=== PATIENT | male | born 1990 | race Caucasian/White ===

== ENCOUNTER → 2019-04-27 | Outpatient (REF) | payer BC ==
[~2019-04-27] MED LIST: /AUGM875TA; CELE1CAP4; VICO5TAB
== END ==
LOC: M SMT 12:49
PROVIDERS: ATTEND Urology
DX: Z30.2 Encounter for sterilization (principal)

== ENCOUNTER → 2019-09-29 | Outpatient (REF) | payer BC ==
[2019-09-29 12:37] LABS: INFLUENZA A AMPLIFICATION POSITIVE (NEGATIVE); INFLUENZA B AMPLIFICATION NEGATIVE (NEGATIVE)
== END ==
LOC: M LAB REF 11:51
PROVIDERS: ATTEND Physician Assistant
DX: J11.1 Influenza due to unidentified influenza virus with other respiratory manifestations (principal)

== ENCOUNTER → 2021-04-29 | Outpatient (REF) | LOC: M LABSMTC 10:41 | PROVIDERS: ATTEND Pediatrics | DX: Z11.52 Encounter for screening for COVID-19 (principal) ==

== ENCOUNTER → 2021-05-07 | Outpatient (REF) | LOC: M EMP 09:45 | PROVIDERS: ATTEND Family Medicine | DX: Z11.52 Encounter for screening for COVID-19 (principal) ==

== ENCOUNTER → 2021-05-11 | Outpatient (REF) | LOC: M LABSMTC 09:55 | PROVIDERS: ATTEND Pediatrics | DX: Z11.52 Encounter for screening for COVID-19 (principal) ==

== ENCOUNTER → 2021-05-16 | Outpatient (REF) | LOC: M LABSMTC 10:32 | PROVIDERS: ATTEND Pediatrics | DX: Z11.52 Encounter for screening for COVID-19 (principal) ==

== ENCOUNTER → 2021-05-21 | Outpatient (REF) | LOC: M EMP 09:39 | PROVIDERS: ATTEND Family Medicine | DX: Z11.52 Encounter for screening for COVID-19 (principal) ==

== ENCOUNTER → 2021-07-03 | Outpatient (REF) | LOC: M LABSMTC 11:52 | PROVIDERS: ATTEND Family Medicine | DX: Z11.52 Encounter for screening for COVID-19 (principal) ==

== ENCOUNTER → 2021-08-16 | Outpatient (REF) | LOC: M LABSMTC 12:17 | PROVIDERS: ATTEND Pediatrics | DX: Z11.52 Encounter for screening for COVID-19 (principal) ==

== ENCOUNTER → 2022-03-17 | Outpatient (REF) | LOC: M LABSMTC 10:53 | PROVIDERS: ATTEND Family Medicine | DX: Z11.52 Encounter for screening for COVID-19 (principal) ==

== ENCOUNTER → 2022-03-26 | Outpatient (REF) | LOC: M EMP 13:55 | PROVIDERS: ATTEND Family Medicine | DX: Z11.52 Encounter for screening for COVID-19 (principal) ==

== ENCOUNTER → 2022-04-22 | Outpatient (REF) | LOC: M EMP 06:11 | PROVIDERS: ATTEND Family Medicine | DX: Z11.52 Encounter for screening for COVID-19 (principal) ==

== ENCOUNTER → 2022-07-16 | Outpatient (REF) | LOC: M EMP 12:17 | PROVIDERS: ATTEND Family Medicine | DX: Z11.52 Encounter for screening for COVID-19 (principal) ==

== ENCOUNTER → 2023-01-09 | Outpatient (CLI) | payer BC ==
[~2023-01-09] MED LIST changes: +MEDR4PAK PO
== END ==
LOC: M SOG 16:17
PROVIDERS: ATTEND Orthopaedic Surgery Hand Surgery
DX: M25.531 Pain in right wrist (principal)

== ENCOUNTER → 2023-06-22 | Outpatient (REF) | LOC: M EMP 12:03 | PROVIDERS: ATTEND Family Medicine | DX: Z11.52 Encounter for screening for COVID-19 (principal) ==

== ENCOUNTER → 2024-02-26 | Outpatient (REF) | LOC: M EMP 08:58 | PROVIDERS: ATTEND Family Medicine | DX: Z20.822 Contact with and (suspected) exposure to COVID-19 (principal) ==

== ENCOUNTER → 2025-04-25 | Outpatient (CLI) | payer BC | LOC: M RAD 12:29 | PROVIDERS: ATTEND Surgery | DX: R10.11 Right upper quadrant pain (principal) ==

== ENCOUNTER → 2025-04-27 | Outpatient (CLI) | payer BC ==
[~2025-04-27] MED LIST changes: +ISOVUE-370 76% 100 ML VIAL As Ordered ONE
[2025-04-27 11:08] LABS: PLATELET COUNT, AUTOMATED 241 10^3/uL (150-450)
[2025-04-27 11:33] LABS: ALT/SGPT 28.0 U/L (7.0-40); AST/SGOT 23.0 U/L (<34); CALCIUM LEVEL 9.5 MG/DL (8.5-10.1); CARBON DIOXIDE LEVEL 29.0 MMOL/L (20-31); CHLORIDE LEVEL 102.0 MMOL/L (98-107); CREATININE FOR GFR 1.26 MG/DL (0.70-1.30); GLOMERULAR FILTRATION RATE 76.3 (>60); POTASSIUM SERUM 3.9 MMOL/L (3.5-5.1); SODIUM LEVEL 141.0 MMOL/L (136-145)
== END ==
LOC: M RAD 10:27
PROVIDERS: ATTEND Surgery
DX: R10.84 Generalized abdominal pain (principal); R11.2 Nausea with vomiting, unspecified

== ENCOUNTER → 2025-05-02 | Outpatient (CLI) | payer BC ==
[~2025-05-02] MED LIST changes: +ALLE180T33 PO; +CARA1TAB6 PO; -ISOVUE-370 76% 100 ML VIAL As Ordered ONE; +OMEP40CA4 PO
[2025-05-02 08:26] LABS: PLATELET COUNT, AUTOMATED 220 10^3/uL (150-450)
[2025-05-02 08:57] LABS: ALT/SGPT 20.0 U/L (7.0-40); AST/SGOT 20.0 U/L (<34); CALCIUM LEVEL 9.6 MG/DL (8.5-10.1); CARBON DIOXIDE LEVEL 27.0 MMOL/L (20-31); CHLORIDE LEVEL 105.0 MMOL/L (98-107); CREATININE FOR GFR 1.23 MG/DL (0.70-1.30); GLOMERULAR FILTRATION RATE 78.5 (>60); POTASSIUM SERUM 4.1 MMOL/L (3.5-5.1); SODIUM LEVEL 142.0 MMOL/L (136-145)
== END ==
LOC: M LAB 07:31
PROVIDERS: ATTEND Surgery
DX: R10.84 Generalized abdominal pain (principal); R11.2 Nausea with vomiting, unspecified

== ENCOUNTER 2025-05-03 07:46 | Day surgery (SDC) | payer BC ==
[~2025-05-03] VITALS: Ht 172.7 cm; Wt 99.3 kg
[2025-05-03] MEDS ORDERED: LIDOCAINE 2% 100 MG/5 ML SDV (FOR ANES.) As Ordered ONE (08:05)
[2025-05-03 08:20] VITALS: TEMP 97.3
[2025-05-03 08:40] VITALS: BP 135/90; O2SAT 99
== END 2025-05-03 09:32 | disposition home or self-care (01) ==
LOC: M OPP 07:46
PROVIDERS: ATTEND Surgery
DX: K22.89 Other specified disease of esophagus (principal); K29.70 Gastritis, unspecified, without bleeding; R11.15 Cyclical vomiting syndrome unrelated to migraine; Z79.899 Other long term (current) drug therapy
CPT/HCPCS: 43239; 78227; 88305; A9537

== ENCOUNTER → 2025-05-03 | Outpatient (CLI) | payer BC | LOC: M RAD 09:58 | PROVIDERS: ATTEND Surgery | DX: R10.84 Generalized abdominal pain (principal); R11.2 Nausea with vomiting, unspecified ==

== ENCOUNTER 2025-05-16 07:47 | Day surgery (SDC) | payer BC ==
[~2025-05-16] VITALS: Ht 172.7 cm; Wt 101.2 kg
[~2025-05-16 07:47] MED LIST changes: +LIDOCAINE 2% 100 MG/5 ML SDV (FOR ANES.) As Ordered ONE; +MIDAZOLAM INJ 2 MG/2 ML VIAL As Ordered ONE; +ROCURONIUM BROMIDE 50MG/5ML VIAL As Ordered ONE
[2025-05-16] MEDS ORDERED: dexAMETHasone 4 MG/ML 1 ML VIAL As Ordered ONE (10:37)
[2025-05-16] MEDS ORDERED: ACETAMINOPHEN 1000MG/100ML IV BAG As Ordered ONE (10:37)
[2025-05-16] MEDS ORDERED: ONDANSETRON 4MG/2ML VIAL As Ordered ONE (10:37)
[2025-05-16] MEDS ORDERED: dexmedeTOMIDine (4 MCG/ML) 200 MCG/50 ML BTL As Ordered ONE (10:37)
[2025-05-16] MEDS ORDERED: SUGAMMADEX SODIUM 500 MG/5 ML VIAL As Ordered ONE (10:37)
[2025-05-16] MEDS ORDERED: LR 1,000 ML IV SCH (10:45)
[2025-05-16] MEDS: ONDANSETRON 4MG/2ML VIAL IV PRN (10:52)
[2025-05-16] MEDS: HYDROMORPHONE HCL 0.5 MG/0.5 ML SYRINGE IV PRN (10:57)
[2025-05-16 13:15] VITALS: BP 148/74; TEMP 97.5; O2SAT 96
== END 2025-05-16 13:17 | disposition home or self-care (01) ==
LOC: M SDC 07:47
PROVIDERS: ATTEND Surgery
DX: K81.1 Chronic cholecystitis (principal); K21.9 Gastro-esophageal reflux disease without esophagitis; Z79.899 Other long term (current) drug therapy; Z90.49 Acquired absence of other specified parts of digestive tract
CPT/HCPCS: 47562; 88304; J0131; J0665; J1100; J1171; J2250; J2405; J2550; J3010; S2900